=== PATIENT | male | born 1965 | race African-American/Black ===

== ENCOUNTER → 2017-01-20 | Outpatient (CLI) | payer MEDICAID ==
[2017-01-20 16:19] LABS: HIV12 AG/AB 4TH GEN W/REFLEX 0.1 (<1.0)
== END ==
LOC: MW.CHNEURO 15:00
PROVIDERS: ATTEND Psychiatry & Neurology Neuromuscular Medicine
DX: G62.9 Polyneuropathy, unspecified (principal)
CPT/HCPCS: 36415; 82607; 83036; 83921; 84165; 86334; 86592; 87389